=== PATIENT | male | born 1990 | race American Indian/Alaskan Native ===

== ENCOUNTER 2018-04-25 04:11 | Emergency (ER) | payer SELFPAY ==
[2018-04-25] MEDS ORDERED: DUONEB *Not for PRN Use IH ONE ×3 (04:30→08:00)
[2018-04-25] MEDS ORDERED: DUONEB *Not for PRN Use IH SCH (08:00)
[2018-04-25] MEDS ORDERED: PROVENTIL IH ONE (08:03)
[2018-04-25] MEDS ORDERED: DECADRON IM ONE (08:03)
--- NOTE | 2018-04-25 08:03 | Emergency Department Report ---
Minor Respiratory - HPI Chief Complaint: Adult Asthma Stated Complaint: KIM Time Seen by Provider: 04/25/18 07:49 Duration: 2 Days Pain Location: Other (patient here report coughing and sneezing and difficulty breathing 2 days wheezes and history of asthma and ran out of his asthma pump. He came via EMS) Severity: severe Minor Respiratory: Yes Rhinorrhea (nasal congestion), Yes Able to Tolerate Fluids, Yes Cough (wheezing), Yes Shortness of Breath, No Sore Throat, No Ear Pain, No Sick Contacts, No Hemoptysis, No Chest Pain, No Fever Other History: This is a 28-year-old male who came by EMS report that these have an asthma flare up when necessary out of his medication. He has a history of asthma. Report nasal congestion and drainage that preceded this. Denies any nausea or vomiting. Denies any chest pain. He received treatment with EMS police that he still feeling wheezy and coughing. Patient also received another treatment in triage area but did not feel better. Pain is 0 out of 10. ED Review of Systems ROS: Stated complaint: KIM Other details as noted in HPI Constitutional: denies: chills, fever Eyes: denies: eye discharge ENT: congestion (nasal congestion and runny nose). denies: ear pain, throat pain Respiratory: cough, shortness of breath, SOB with exertion, SOB at rest, wheezing. denies: stridor Cardiovascular: denies: chest pain, palpitations, edema, syncope Endocrine: no symptoms reported Gastrointestinal: denies: nausea, vomiting, diarrhea Musculoskeletal: denies: back pain, joint swelling, arthralgia, myalgia Skin: denies: rash, lesions Neurological: denies: headache ED Past Medical Hx - Past Medical History Previous Medical History?: Yes Hx Asthma: Yes - Surgical History Past Surgical History?: Yes Additional Surgical History: testicular - Family History Family history: hypertension - Social History Smoking Status: Current Every Day Smoker Substance Use Type: Marijuana - Medications Home Medications: Home Medications Medication Instructions Recorded Confirmed Last Taken Type ALBUTEROL Inhaler [ProAir HFA 2 puff IH Q6H PRN #1 inhalation 04/25/18 Unknown Rx Inhaler] Azithromycin [Zithromax Z-SYED] 250 mg PO DAILY 5 Days #1 pkg 04/25/18 Unknown Rx Cetirizine HCl [ZyrTEC] 10 mg PO QDAY 21 Days #21 08/24/18 Unknown Rx tab.rapdis Fluticasone [Flonase] 1 spray NS QDAY 14 Days #1 bottle 04/25/18 Unknown Rx methylPREDNISolone [Medrol Dose 4 mg PO DAILY #1 tab.ds.pk 04/25/18 Unknown Rx Syed] Minor Respiratory Exam - Exam General: Vital signs noted. No distress. Alert and acting appropriately. This is a 28-year-old male well-nourished well-developed in no acute distress. HEENT: Yes Moist Mucous Membranes, Yes Rhinorrhea (nasal congestion and runny nose), No Pharyngeal Erythema, No Pharyngeal Exudates, No Conjuctival Injection , No Frontal Tenderness, No Maxillary Tenderness Ear: Neither TM Bulge (ingestion without erythema), Neither TM Erythema, Neither EAC Pain, Neither EAC Discharge Neck: Yes Supple (full range of motion), No Adenopathy Lungs: Yes Wheezes (upper lung gil), Yes Cough (congested cough), No Ronchi, No Stridor, No Labored Respirations, No Retractions, No Use of Accessory Muscles , No Other Abnormal Lung Sounds Heart: Yes Regular (S1, S2, regular rate and rhythm), No Murmur Abdomen: Yes Normal Bowel Sounds (in all quadrants), No Tenderness (Nttp), No Peritoneal Signs Skin: No Rash, No Edema Neurologic: Alert and oriented, no deficits. Musculoskeletal: Unremarkable. ED Course Vital Signs 04/25/18 04/25/18 04/25/18 04:20 04:30 04:39 Temperature 98.4 F Pulse Rate 89 Pulse Rate [ 91 H 94 H Anterior Bilateral Throughout] Respiratory 18 Rate Respiratory 18 18 Rate [Anterior Bilateral Throughout] Blood Pressure 122/73 O2 Sat by Pulse 94 Oximetry 04/25/18 05:16 Temperature Pulse Rate 91 H Pulse Rate [ Anterior Bilateral Throughout] Respiratory 18 Rate Respiratory Rate [Anterior Bilateral Throughout] Blood Pressure O2 Sat by Pulse 98 Oximetry - Reevaluation(s) Reevaluation #1: 04/25/18 08:45 Patient received DuoNeb 1 treatment in triage area which did not help. He received albuterol 5 mg nebulizer treatment along with Decadron 10 mg IM and emergency room which relieved his wheezing and he said he is feeling a lot better. ED Medical Decision Making - Medical Decision Making This is a 28-year-old male here for asthma exacerbation to be evaluated. She was evaluated and examined by myself and his physical exam is normal except he has wheezing throughout upper lung gil, cough and that is congested and no use of accessory muscles. He has nasal congestion or runny nose and bilateral TM congestion without erythema. Patient was given DuoNeb and triage area which did not help is wheezing and coughing. He was further given albuterol 5 mg nebulizer and emergency room and Decadron 10 mg IM and after reevaluation his lungs sounds are clear and he said he is feeling a lot better. He still has a congested cough so I discussed diagnosis and treatment plan with them and I told her multiple had him put him on antibiotic to prevent due to congestion in his lungs. Patient is not running a fever and heart rate is stable. Patient was understanding of discharge diagnosis and treatment plan and discharged home in stable condition with vital signs stable, afebrile and he said he still a lot better. Given prescription for Zyrtec, Flonase, Z-Syed, Medrol Dosepak and albuterol. He is to follow-up with his primary care physician and 3 days and if he does not have one to follow-up at [facility]. I also discussed with him that if his symptoms worsen to return to the emergency room and he voiced understanding. Critical care attestation.: If time is entered above; I have spent that time in minutes in the direct care of this critically ill patient, excluding procedure time. ED Disposition Clinical Impression: URI with cough and congestion Asthma attack Qualifiers: Asthma severity: moderate Asthma persistence: persistent Qualified Code(s): J45.41 - Moderate persistent asthma with (acute) exacerbation Disposition: TO HOME OR SELFCARE Is pt being admited?: No Does the pt Need Aspirin: No Condition: Stable Instructions: Asthma (ED), Upper Respiratory Infection (ED) Additional Instructions: Please follow up with a primary care physician in 3 days and if you do not have one follow-up with [facility] Take medication as prescribed Increased her fluid intake If your condition worsens, return to the emergency room Prescriptions: ALBUTEROL Inhaler [ProAir HFA Inhaler] 2 puff IH Q6H PRN #1 inhalation PRN Reason: Shortness Of Breath Azithromycin [Zithromax Z-SYED] 250 mg PO DAILY 5 Days #1 pkg Cetirizine HCl [ZyrTEC] 10 mg PO QDAY 21 Days #21 tab.rapdis Fluticasone [Flonase] 1 spray NS QDAY 14 Days #1 bottle methylPREDNISolone [Medrol Dose Syed] 4 mg PO DAILY #1 tab.ds.pk Referrals: PRIMARY CARE, [Primary Care Provider] - 04/28/18 [facility] [Outside] - 04/28/18 Forms: Work/School Release Form(ED)
[2018-04-25 08:08] VITALS: BP 114/66
== END 2018-04-25 09:00 | disposition home or self-care (01) ==
LOC: ED 04:11
DX: J45.41 Moderate persistent asthma with (acute) exacerbation (principal); J06.9 Acute upper respiratory infection, unspecified; F17.200 Nicotine dependence, unspecified, uncomplicated; Z91.013 Allergy to seafood
CPT/HCPCS: 94640; 96372; 99283; J1100